=== PATIENT | male | born 1930 | race Caucasian/White ===

== ENCOUNTER → 2017-01-10 | Outpatient (CLI) | payer OTHER ==
[~2017-01-10] MED LIST: ADVAIR HFA 230M12 GM INH; COLACE100 MG PO; FLONASE 0.05%50 MCG NASAL; HYDROCODON-ACE1 EAC7 PO; LOPRESSOR100 M1 PO; MIRALAX17 GM PO; NEURONTIN 300300 M1 PO; NORVASC10 MG PO; PLAVIX 75 MG TA75 M1 PO; PREDNISONE 20 M20 MG PO; PROTONIX40 M1 PO; SODIUM BICARBO650 M3 PO; SPIRIVA INH; TESSALON PERLE100 MG PO; TYLENOL325 MG PO; VENTOLIN HFA 1818 GM INH; XARELTO15 MG PO
[2017-01-10 14:05] VITALS: BP 91/40; BP 98/44
== END ==
LOC: OPONC 02:34
DX: I73.9 Peripheral vascular disease, unspecified (principal)
CPT/HCPCS: 91030